=== PATIENT | male | born 1985 | race Caucasian/White ===

== ENCOUNTER 2017-07-02 15:59 | Emergency (ER) | payer MEDICAID, OTHER ==
[2017-07-02 16:04] VITALS: BP 111/73; PULSE 96; RESP 18; TEMP 98.9; O2SAT 98
[2017-07-02 16:36] LABS: BASO # 0.1 K/uL (0.0-0.2); BASO % 0.5 % (0.0-2.0); EOS # 0.1 K/uL (0.0-0.7); HEMATOCRIT 49.2 % (35.0-51.0); LYMPH # 2.9 K/uL (1.0-4.3); LYMPH % 27.1 % (20.0-40.0); MEAN CELL VOLUME 92.2 fL (80.0-94.0); MEAN CORPUSCULAR HEMOGLOBIN 32.1 pg (27.0-31.0); MEAN CORPUSCULAR HGB CONC 34.9 g/dL (33.0-37.0); MEAN PLATELET VOLUME 6.9 fL (7.2-11.7); MONO # 1.2 K/uL (0.0-0.8); MONO % 10.7 % (0.0-10.0); NRBC % 0.1 % (0.0-2.0); RED CELL DISTRIBUTION WIDTH 13.1 % (11.5-14.5); WHITE BLOOD COUNT 10.8 K/uL (4.8-10.8)
[2017-07-02 16:43] LABS: CHLORIDE 92 mmol/L (98-107); POTASSIUM 3.8 mmol/L (3.6-5.2); SODIUM 134 mmol/L (132-148)
[2017-07-02 16:46] LABS: BLOOD UREA NITROGEN 25 mg/dL (9-20); CARBON DIOXIDE 26 mmol/L (22-30); GFR AFRICAN-AMERICAN > 60
[2017-07-02 16:47] LABS: CALCIUM 10.1 mg/dl (8.6-10.4); GLUCOSE,RANDOM 107 mg/dL (75-110)
--- NOTE | 2017-07-02 16:50 | C.PDOC ---
Time Seen by Provider: 07/02/17 16:10 Chief Complaint (Nursing): Medical Clearance Past Medical History Vital Signs: Last Vital Signs Temp 98.9 F 07/02/17 16:01 Pulse 96 H 07/02/17 16:01 Resp 18 07/02/17 16:01 BP 111/73 07/02/17 16:01 Pulse Ox 98 07/02/17 16:01 - Medical History PMH: Anxiety Denies: Chronic Kidney Disease Surgical History: Appendectomy - [facility] Procedures ASPIRATION SKIN & SUBQ (05/27/15) RESECTION OF APPENDIX, PERCUTANEOUS ENDOSCOPIC APPROACH (09/21/15) Family History: States: Unknown Family Hx - Social History Hx Tobacco Use: Yes (cigars) Hx Alcohol Use: Yes (occasional) Hx Substance Use: Yes - Immunization History Hx Tetanus Toxoid Vaccination: No Hx Influenza Vaccination: No Hx Pneumococcal Vaccination: No ED Course And Treatment - Laboratory Results Result Diagrams: 07/02/17 16:33 07/02/17 16:33 O2 Sat by Pulse Oximetry: 98 Disposition - Disposition Forms: Rad (Serbian)
--- NOTE | 2017-07-02 16:52 | C.PDOC ---
History Of Present Illness 32 year old male presents to the ED for evaluation of diffuse muscle cramps since yesterday; pt denies any associated fever, cough, runny nose, and abdominal pain. 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 He states he was doing his "usual job" and denies any new medications, drug use or sick contacts. He states he has never had such symptoms before. Time Seen by Provider: 07/02/17 16:10 Chief Complaint (Nursing): Medical Clearance History Per: Patient History/Exam Limitations: no limitations Onset/Duration Of Symptoms: Days (2) Current Symptoms Are (Timing): Still Present Severity: Mild Past Medical History Reviewed: Historical Data, Nursing Documentation, Vital Signs Vital Signs: Last Vital Signs Temp 98.9 F 07/02/17 16:01 Pulse 96 H 07/02/17 16:01 Resp 18 07/02/17 16:01 BP 111/73 07/02/17 16:01 Pulse Ox 98 07/02/17 18:04 - Medical History PMH: Anxiety Surgical History: Appendectomy - [facility] Procedures ASPIRATION SKIN & SUBQ (05/27/15) RESECTION OF APPENDIX, PERCUTANEOUS ENDOSCOPIC APPROACH (09/21/15) Family History: States: No Known Family Hx - Social History Hx Tobacco Use: Yes (cigars) Hx Alcohol Use: Yes (occasional) Hx Substance Use: Yes - Immunization History Hx Tetanus Toxoid Vaccination: No Hx Influenza Vaccination: No Hx Pneumococcal Vaccination: No Review Of Systems Except As Marked, All Systems Reviewed And Found Negative. Constitutional: Negative for: Fever, Chills ENT: Negative for: Nose Discharge Cardiovascular: Negative for: Chest Pain, Palpitations Respiratory: Negative for: Cough, Shortness of Breath Gastrointestinal: Negative for: Nausea, Vomiting, Abdominal Pain, Diarrhea Musculoskeletal: Positive for: Other (diffuse msucle cramps) Physical Exam - Physical Exam Appears: Well, Non-toxic, No Acute Distress Skin: Normal Color, Warm, Dry Oral Mucosa: Moist Cardiovascular: Rhythm Regular Respiratory: Normal Breath Sounds, No Rales, No Rhonchi, No Wheezing Extremity: Normal ROM Extremity: Bilateral: Atraumatic, Normal Color And Temperature, Normal ROM Pulses: Left Dorsalis Pedis: Normal, Right Dorsalis Pedis: Normal Neurological/Psych: Oriented x3, Dysarthria Gait: Steady ED Course And Treatment - Laboratory Results Result Diagrams: 07/02/17 16:33 07/02/17 16:33 O2 Sat by Pulse Oximetry: 98 (RA) Pulse Ox Interpretation: Normal Progress Note: Blood work ordered and reviewed - K level WNL. Patient reassurred symptoms may be due to viral syndrome vs mild dehydration. He was instructed to drink plenty of fluids, and follow up with PMD/clinic in 1-2 days. Patient understands he should return to ED if symptoms worsen. Reevaluation Time: 16:50 Reassessment Condition: Improved Disposition Counseled Patient/Family Regarding: Diagnosis, Need For Followup, Rx Given - Disposition Referrals: Darian Alcazar MD [Non-Staff] - Disposition: HOME/ ROUTINE Disposition Time: 16:50 Condition: STABLE Additional Instructions: FOLLOW UP WITH YOUR DOCTOR/CLINIC IN 1-2 DAYS DRINK PLENTY OF FLUIDS RETURN TO ER IF SYMPTOMS WORSEN Instructions: Muscle Cramp (ED) Forms: [employer] (Jamaican) Print Language: [place] - Clinical Impression Clinical Impression: Medical assessment, Muscle cramps - Scribe Statement The provider has reviewed the documentation as recorded by the Joseibdunia Saldana Provider Attestation: Provider Attestation: All medical record entries made by the Jennyfer were at my direction and personally dictated by me. I have reviewed the chart and agree that the record accurately reflects my personal performance of the history, physical exam, medical decision making, and the department course for this patient. I have also personally directed, reviewed, and agree with the discharge instructions and disposition.
== END 2017-07-02 17:13 | disposition home or self-care (01) ==
LOC: C.ER 15:59
DX: R25.2 Cramp and spasm (principal)